=== PATIENT | female | born 1990 | race Two or more races ===

== ENCOUNTER 2023-06-28 21:12 | Emergency (ER) | payer MEDICAID, OTHER ==
[~2023-06-28] VITALS: Ht 157.5 cm; Wt 54.5 kg
[2023-06-28] MEDS: KETOROLAC TROMETH 60MG/2ML VIAL IM ONE (23:18)
[2023-06-28 23:22] VITALS: BP 119/75; PULSE 80; RESP 18; TEMP 97.9; O2SAT 100
== END 2023-06-28 23:40 | disposition home or self-care (01) ==
LOC: ER 21:12
DX: S62.002A Unspecified fracture of navicular [scaphoid] bone of left wrist, initial encounter for closed fracture (principal); M25.531 Pain in right wrist; M25.532 Pain in left wrist; R07.89 Other chest pain; V87.8XXA Person injured in other specified noncollision transport accidents involving motor vehicle (traffic), initial encounter; Y93.89 Activity, other specified; Y92.410 Unspecified street and highway as the place of occurrence of the external cause; Y99.8 Other external cause status
CPT/HCPCS: 29125; 71045; 71120; 73090; 73110; 73130; 93005; 96372; 99284; J1885